=== PATIENT | male | born 1965 | race Caucasian/White ===

== ENCOUNTER 2022-11-10 14:01 | Emergency (ER) | payer MEDICAID, SELFPAY ==
[2022-11-10] VITALS (39 sets, daily range): BP systolic 110–136; BP diastolic 66–87; PULSE 104–149; RESP 18–39; TEMP 37.2–37.5; O2SAT 89–100
--- NOTE | 2022-11-10 14:00 | RT.EKG_ITS ---
APPROVED REPORT Exam: Resting ECG Reason for Exam: tachycardia Patient Location: E HR:135 bpm ECG Measurements Heart Rate 135 AXIS [place] 153 P 55 QRSd 74 QRS 76 QT 255 T 259 QTc 383 Conclusion Sinus tachycardia...rate> 99 Probable left atrial enlargement...P >50mS, <-0.10mV V1 sinus tachycardia, normal axis, normal intervals
--- NOTE | 2022-11-10 14:14 | DI.RAD_ITS ---
Exam(s) XR CHEST 1V IN DI DEPT EXAM: XR CHEST 1V IN DI DEPT CLINICAL HISTORY: tachy, fever, ca on chemo. TECHNIQUE: 2D digital imaging was performed. COMPARISON: No exams were available for comparison FINDINGS: Single AP portable view. There is a right supra clavi in Port-A-Cath. Its distal tip is in the right atrium. Heart size is upper normal. The mediastinum is not widened. Lungs are clear. No infiltrates nor obvious pleural effusions. IMPRESSION: No acute pulmonary findings on this single AP portable view of the chest. The distal tip of the Port-A-Cath is in the right atrium. DATA REPOSITORY: RADIATION DOSE DELIVERED:
--- NOTE | 2022-11-10 14:20 | W.ED.GENAD ---
Discharge Plan Discharge Details Chief Complaint: Abd Prob Primary Care Provider: Ludwig Acevedo ED Provider: Aftab Kidd Home Meds and New Rx's Prescriptions: No Action prochlorperazine maleate 10 mg tablet 10 mg PO Q6H PRN Patient Comments: TAKE ONE TABLET BY MOUTH EVERY 6 HOURS NEEDED FOR NAUSEA AND VOMITING hydrochlorothiazide [HydroDiuril] 25 mg Tablet 12.5 mg PO DAILY Ensure Plus 0.05 gram- 1.5 kcal/mL liquid 237 ml PO BID Medical Decision Making 57-year-old male history of colon cancer metastatic to liver currently undergoing chemotherapy presents after developing tachycardia and fever at the end of his chemotherapy session this afternoon. Endorses abdominal pain without nausea or diarrhea patient is afebrile here however tachycardic to the 140s does appear dry and pale, abdomen is distended with hepatomegaly and ascites, nonperitoneal. Consider chemotherapy reaction versus viral illness versus bacterial infection such as pneumonia colitis UTI versus enteritis bowel perforation and peritonitis versus spontaneous bacterial peritonitis. Will obtain basic labs, cultures, chest x-ray, CT abdomen pelvis. Fluids analgesia antiemetics close reassessment of symptoms, disposition pending results and reassessment 15: 30 patient resting comfortably no acute distress persistent tachycardia. Awaiting labs and imaging. HPI General Date/Time Provider Initiated Documentation: 11/10/22 14:08. HPI Narrative: 57-year-old male history of colorectal cancer metastatic to liver, currently undergoing chemotherapy, was at chemo finishing his session when he developed tachycardia and a fever. Also endorses abdominal discomfort. Endorses normal bowel movements, no nausea or vomiting. No chest pain or shortness of breath. No history of thromboembolic disease. Related Data Home Medications Medication Instructions Recorded Confirmed food supplemt, lactose-reduced 237 ml PO BID 11/10/22 11/10/22 0.05 gram-1.5 kcal/mL oral liquid (Ensure Plus) hydrochlorothiazide 25 mg tablet 12.5 mg PO DAILY 11/10/22 11/10/22 prochlorperazine maleate 10 mg 10 mg PO Q6H PRN 11/10/22 11/10/22 tablet Allergies Allergy/AdvReac Type Severity Reaction Status Date / Time No Known Allergies Allergy Unverified 11/10/22 14:38 General Stated Complaint: Abd Prob EDELMIRA: 3 Review of Systems Narrative: Review of Systems Constitutional: negative Eyes: negative ENT: negative Cardiovascular: Tachycardia Respiratory: negative Gastrointestinal: Abdominal pain : negative Musculoskeletal: negative Skin: negative Neurologic: negative Psych: negative [facility] Medical History (Updated 11/10/22 @ 14:38 by Rylee Raymond) Colon cancer metastasized to liver Hairy cell leukemia Hypertension Spondylosis of lumbar spine Social History Smoking risk assessment performed?: No Exam Narrative Exam Narrative: Physical Examination General: alert, awake, cooperative HEENT: normocephalic, atraumatic; PERRL, EOM intact, conjunctiva normal; no nasal discharge; slight drying of oral mucosa Neck: supple, trachea midline; full ROM Chest: normal to inspection Respiratory: normal respiratory effort, speaking in full sentences, clear to auscultation, no wheezing, rales or rhonchi Cardiac: regular rate, regular rhythm, S1S2 intact, no murmurs rubs or gallops GI: Abdominal distention, hepatomegaly, ascites, nonperitoneal Skin: Pale, dry Neuro: AAOx3, normal speech, moving all extremities Extremities: No edema Psych: Appropriate mood and affect Course Vital Signs Vital signs: Vital Signs Temperature 37.2 C 11/10/22 14:05 Pulse 142 H 11/10/22 14:05 Blood Pressure 136/82 11/10/22 14:05 Pulse Oximetry 97 11/10/22 14:05 Temperature 37.2 C 11/10/22 14:05 Temperature Source Oral 11/10/22 14:05 Pulse 142 H 11/10/22 14:05 Respiratory Effort Normal, Short of Breath 11/10/22 14:09 Blood Pressure 136/82 11/10/22 14:05 Blood Pressure Position Sitting 11/10/22 14:05 Pulse Oximetry 97 11/10/22 14:05 Oxygen Delivery Method Room Air 11/10/22 14:05 Oxygen Flow Rate 0 11/10/22 14:05 Lab/Test Results Lab/Test Results: 11/10/22 14:14 Blood Blood Culture - Pending 11/10/22 14:14 Blood Blood Culture - Pending
[2022-11-10 14:54] LABS: Abs Immature Grans 0.11 10^3/uL (0.0-0.06); Absolute Basophil Count 0.02 10^3/uL (0.0-0.2); Absolute Lymphocyte Count 0.74 10^3/uL (1.2-3.4); Basophils % 0.1; HCT 31.1 % (40.0-50.0); HGB 10.1 g/dL (13.5-17.5); Immature Grans % 0.6; Lymphocytes % 4.3; MCH 24.9 pg (27.0-33.0); MCHC 32.5 % (32.0-36.0); MCV 77 fL (80-95); MPV 8.5 fL (8.0-11.0); RBC 4.05 10^6/uL (4.36-5.78); RDW 16.4 % (11.8-14.1); RDW-SD 45.7 fL
[2022-11-10 14:55] LABS: Absolute Monocyte Count 0.69 10^3/uL (0.1-0.8); Absolute Neutrophil Count 15.74 10^3/uL (1.2-6.7)
[2022-11-10] MEDS: Normal Saline 1,000 ML 1000 ML IV (15:01)
[2022-11-10] MEDS: ACETAMINOPHEN 1,000 MG/100 ML BTL 400 MG IVPB (15:10)
[2022-11-10 15:14] LABS: INR 1.2 (0.9-1.1); PTT Activated 26.5 sec (21.5-31.9); Prothrombin Time 12.1 sec (9.3-11.0)
[2022-11-10] MEDS: Ondansetron 4 MG/2 ML VIAL IVP (15:16)
[2022-11-10] MEDS: MORPHine 4 MG/ML SYR 2 MG IVP (15:19)
[2022-11-10 15:29] LABS: ALT 113 U/L (16-63); AST 591 U/L (15-37); Albumin 2.2 g/dL (3.4-5.0); Alkaline Phosphatase 826 U/L (46-116); Anion Gap 8.9 mmol/L (3-11); BUN 22 mg/dL (7-18); Bilirubin, Total 0.9 mg/dL (0.2-1.0); CO2 29.1 mmol/L (21.0-32.0); Calcium 9.7 mg/dL (8.5-10.1); Chloride 94 mmol/L (98-107); Glucose 138 mg/dL (74-106); Lipase 17 U/L (16-77); Potassium 4.1 mmol/L (3.5-5.1); Sodium 132 mmol/L (136-145); TSH (W/Ref FT4) 3.54 uIU/mL (0.36-3.74); Total Protein 6.8 g/dL (6.4-8.2)
--- NOTE | 2022-11-10 15:30 | DI.CT_ITS ---
Exam(s) CT CHEST PE ABD PELVIS W EXAM: CT CHEST PE ABD PELVIS W CLINICAL HISTORY: active cancer, tachycardia, abdominal pain. TECHNIQUE: Imaging Protocol: Axial CT angiography was performed with multi-slice acquisition and m ulti-planar and/or 3D reconstructions. CONTRAST MATERIAL: Intravenous: Omnipaque 350 Contrast volume:100 ml Oral: None COMPARISON: CR XR CHEST 1V IN DI DEPT from 11/10/2022 FINDINGS: CHEST: Distal tip of the right PICC line is in the right atrium. PULMONARY ARTERIES: There are no obvious intra-arterial filling defects to suggest the presence of ac evans pulmonary emboli. LUNGS: There is no evidence of pulmonary infarction.There are multiple small calcified granulomas thr oughout both lung bullock. There are no obvious metastatic appearing nodules. No confluent infiltrat es and no pleural effusions. No findings in the trachea and mainstem bronchi. There are no pleural effusions. MEDIASTINUM: There is no hilar nor mediastinal adenopathy. Visualized thyroid unremarkable. CARDIAC: Heart size is normal. There is no pericardial effusion. There is no significant shift of t he interventricular septum.Caliber of the thoracic aorta is within normal limits. OSSEOUS: No significant osseous lesions.. ABDOMEN: There is a small amount of perihepatic ascites. There are metallic densities in the left upper quadr ant just above the pancreatic tail and behind the stomach, possibly surgical clips. LIVER: There are multiple individual and confluent metastatic lesions throughout the liver. Involvin g both lobes. Liver also appears somewhat cirrhotic. GALLBLADDER/BILIARY: No obvious gallbladder pathology. CBD is not dilated. PANCREAS: No evidence of pancreatic mass nor dilatation of the pancreatic duct. SPLEEN: Spleen size normal. There is some subcapsular fluid around the lateral aspect of the spleen. Splenic and portal veins are patent. ADRENALS: There are no significant adrenal masses. KIDNEYS:No cysts evident. No calculi nor hydronephrosis. No solid renal masses. ABDOMINAL AORTA: Abdominal aorta is not enlarged. LYMPH NODES: There is retroperitoneal adenopathy. Portacaval adenopathy. Also para-aortic adenopath y. Largest lymph node adjacent to the aorta is left of the aorta and measures 2.3 x 2.3 cm. There i s no adenopathy distal to the aortic bifurcation. ABDOMINAL WALL/GI: No evidence of significant anterior abdominal wall hernia. No bowel obstruction. PELVIS: LYMPH NODES: There is some ascites in the pelvis. GI: No evidence of appendicitis.No evidence of sigmoid diverticulitis. URINARY BLADDER: No calculi nor masses evident REPRODUCTIVE: Prostate slightly prominent. OSSEOUS: No significant osseous lesions. No fractures. IMPRESSION: 1. No evidence of acute pulmonary emboli nor pulmonary infarction. 2. No infiltrates nor pleural effusions. No metastatic nodules in the lung bullock but there are nume kathy bilateral calcified benign granulomas in both lung bullock. 3. There is diffuse metastatic disease involving all aspects of the liver. Liver also appears cirrho tic. 4. Moderate amount of ascites evident. Also retroperitoneal and para-aortic adenopathy evident. 5. No significant osseous lesions. No fractures. RADIATION DOSE DELIVERED: 1,292.81mGy.cm Total DLP DATA REPOSITORY: All CT scans at this facility are submitted to the National Radiology Data Registry (NRDR) Dose Index Registry (DIR) with the [employer] (A[employer]). RADIATION OPTIMIZATION: All CT scans at this facility use at least one of these dose optimization te chniques: automated exposure control; mA and/or kV adjustment per patient size (includes targeted exa ms where dose is matched to clinical indication); or iterative reconstruction.
[2022-11-10 15:35] LABS: Platelet Count 738 10^3/uL (130-400)
[2022-11-10 15:40] LABS: Magnesium 1.6 mg/dL (1.8-2.4)
[2022-11-10] MEDS: Normal Saline - Diluent 50 ML VIAL IJ (15:45)
[2022-11-10] MEDS: Omnipaque 350 MG/ML 100 ML BTL IJ (15:46)
[2022-11-10] MEDS: Normal Saline Flush 10 ML SYR IVP (15:47)
[2022-11-10 16:28] LABS: Bilirubin Negative (Negative); Blood Negative (Negative); Clarity Clear (Clear); Glucose Negative (Negative); Ketones Negative (Negative); Leukocyte Esterase Negative (Negative); Nitrite Negative (Negative); Specific Gravity 1.015 (1.005-1.025); pH 5.5 (5-8)
[2022-11-10 16:39] LABS: Bacteria Negative HPF (Negative); C & S Indicated? No; Casts Negative LPF (Negative); Crystals Negative HPF (Negative); Epithelial Cells Rare HPF (Negative); Mucus Negative (Negative); RBC 0-2 HPF (0-2); WBC 0-2 HPF (0-5)
[2022-11-10 17:09] LABS: COVID-19 PCR Negative (Negative); Influenza A PCR Negative (Negative); Influenza B PCR Negative (Negative); RSV PCR Negative (Negative)
[2022-11-10 17:16] LABS: Source Nasopharynx
--- NOTE | 2022-11-10 17:41 | DI.VRAD_ITS ---
PROCEDURE INFORMATION: Exam: CTA Chest With Contrast CTA Abdomen With Contrast Exam date and time: 11/10/2022 3:58 PM Age: 57 years old Clinical indication: Prior surgery; Surgery date: 6+ months; Surgery type: Port, spleen; Patient HX: Active cancer, tachycardia, abdominal pain, known liver and colon cancer TECHNIQUE: Imaging protocol: Computed tomographic angiography of the chest with contrast. Computed tomographic angiography of the abdomen with contrast. 3D rendering (Not supervised by radiologist): MIP and/or 3D reconstructed images were created by the technologist. Contrast material: OMNIPAQUE 350; Contrast volume: 100 ml; Contrast route: INTRAVENOUS (IV); COMPARISON: CR XR CHEST 1V IN DI DEPT 11/10/2022 3:57 PM FINDINGS: Tubes, catheters and devices: There is a right-sided Port-A-Cath catheter with its tip in the right atrium. VASCULATURE: Pulmonary arteries: There is no evidence of a pulmonary embolus. Aorta: The aorta is unremarkable. Celiac trunk and mesenteric arteries: The patient is status post splenic artery aneurysm coiling. There is no evidence of a stenosis. Renal arteries: No occlusion or significant stenosis. Thyroid: The visualized portions of the thyroid gland appear unremarkable. CHEST: Lungs: The tracheobronchial tree is patent bilaterally. There is no evidence of an infiltrate. There are multiple scattered bilateral calcified granuloma. Pleural spaces: There are no pleural effusions. Heart: The heart and pericardium are within normal limits. ABDOMEN AND PELVIS: Liver: The liver is practically completely occupied by metastatic disease. Gallbladder and bile ducts: The gallbladder is unremarkable. Pancreas: The pancreas is unremarkable. Spleen: The spleen is within normal limits. Adrenal glands: The adrenal glands are within normal limits. Kidneys and ureters: The kidneys are unremarkable. Stomach and bowel: There are feces within the colon which are suspicious for constipation. There is a mass at the junction of the sigmoid and descending colons. This is consistent with the patient's history of colonic carcinoma. The mass extends outside the confines of the colon. The extra colonic component measuring approximally 2.8 x 2.5 cm. Intraperitoneal space: There is ascites within the abdomen and pelvis. Urinary bladder: The urinary bladder is unremarkable. Reproductive: The prostate and seminal vesicles are within normal limits. Lymph nodes: There are calcified right paratracheal and precarinal lymph nodes. There are calcified prevascular lymph nodes. There are calcified subcarinal lymph nodes. There are calcified bilateral hilar lymph nodes. These findings are consistent with old granulomatous disease. There are multiple left periaortic lymph nodes. The largest of which measures 1.9 cm. There are multiple aortocaval lymph nodes. The largest of which measures up to 1.4 cm. There is portacaval adenopathy with a lymph node measuring 2.8 x 1.3 cm. Bones/joints: There are degenerative changes of the thoracic spine. There is an anterior flowing osteophyte at multiple levels. There are slight degenerative changes of the left shoulder. There are degenerative changes of the lumbar spine. Soft tissues: Unremarkable. IMPRESSION: 1. Colonic carcinoma as above. The liver is practically completely occupied by metastatic disease. Retroperitoneal adenopathy as above. Small amount of ascites within the abdomen and pelvis. 2. No evidence of a pulmonary embolus. 3. The aorta is unremarkable. 4. Findings consistent with old granulomatous disease. 5. Osseous findings as above. Dictated and Authenticated by: Junior Melara MD. Ordering:BREE Grullon MD
[2022-11-10] MEDS: Heparin 500 UNITS/5 ML SYRINGE IVP (18:57)
== END 2022-11-10 19:01 | disposition home or self-care (01) ==
PROVIDERS: Emergency Medicine; Emergency Provider Emergency Medicine; PCP Internal Medicine Hematology & Oncology
DX: R50.9 Fever, unspecified (principal); R00.0 Tachycardia, unspecified; D72.829 Elevated white blood cell count, unspecified; C18.9 Malignant neoplasm of colon, unspecified; C78.7 Secondary malignant neoplasm of liver and intrahepatic bile duct; R18.8 Other ascites; R16.0 Hepatomegaly, not elsewhere classified
CPT/HCPCS: 71275; 74177; 80053; 83690; 87040; 87637; 93005; 96361; 96374; 96375; 99285; 71045; 81003; 81015; 83735; 84443; 85025; 85610; 85730; 93010; J0131; J2270; J2405; J3490

== ENCOUNTER 2022-11-22 02:33 | Outpatient (RCR) | payer MEDICAID, SELFPAY ==
[2022-11-22] MEDS: Normal Saline Flush 10 ML SYR IVP (09:09)
[2022-11-22 09:23] LABS: Abs Immature Grans 0.03 10^3/uL (0.0-0.06); Absolute Basophil Count 0.05 10^3/uL (0.0-0.2); Absolute Eosinophil Count 0.06 10^3/uL (0.0-0.7); Absolute Lymphocyte Count 1.73 10^3/uL (1.2-3.4); Absolute Monocyte Count 1.57 10^3/uL (0.1-0.8); Basophils % 0.5; Eosinophils % 0.6; HCT 29.5 % (40.0-50.0); HGB 9.2 g/dL (13.5-17.5); Immature Grans % 0.3; Lymphocytes % 16.3; MCH 25.1 pg (27.0-33.0); MCHC 31.2 % (32.0-36.0); MCV 80 fL (80-95); MPV 8.7 fL (8.0-11.0); Monocytes % 14.8; Neutrophils % 67.5; RBC 3.67 10^6/uL (4.36-5.78); RDW 19.3 % (11.8-14.1); RDW-SD 54.7 fL; WBC 10.64 10^3/uL (4.4-10.8)
[2022-11-22 09:34] LABS: Diff Comment Diff Reviewed; RBC Morphology Normal
[2022-11-22 09:37] LABS: Platelet Count 872 10^3/uL (130-400)
[2022-11-22 09:47] LABS: ALT 37 U/L (16-63); AST 98 U/L (15-37); Alkaline Phosphatase 804 U/L (46-116); BUN 8 mg/dL (7-18); Bilirubin, Total 0.5 mg/dL (0.2-1.0); CREATININE 0.8 mg/dL (0.70-1.30); Calcium 9.3 mg/dL (8.5-10.1); Chloride 98 mmol/L (98-107); Estimated GFR 101.95 (mL/min/1.73m2); Glucose 151 mg/dL (74-106); Potassium 3.7 mmol/L (3.5-5.1); Sodium 136 mmol/L (136-145); Total Protein 6.4 g/dL (6.4-8.2)
[2022-11-23 10:42] LABS: CEA 2289.7 ng/mL (See Note)
== END 2022-12-06 23:59 | disposition home or self-care (01) ==
LOC: INF 02:33
PROVIDERS: PCP Internal Medicine Hematology & Oncology; Visit Provider Internal Medicine Hematology & Oncology
DX: Z45.2 Encounter for adjustment and management of vascular access device (principal); C18.9 Malignant neoplasm of colon, unspecified; C78.7 Secondary malignant neoplasm of liver and intrahepatic bile duct
CPT/HCPCS: 36591; 80053; 82378; 85025

== ENCOUNTER 2023-01-05 00:40 | Outpatient (RCR) | payer MEDICAID, SELFPAY ==
[2022-12-08] MEDS: Normal Saline Flush 10 ML SYR IVP (08:06)
[2022-12-08 08:12] LABS: Abs Immature Grans 0.03 10^3/uL (0.0-0.06); Absolute Basophil Count 0.09 10^3/uL (0.0-0.2); Absolute Eosinophil Count 0.04 10^3/uL (0.0-0.7); Absolute Lymphocyte Count 1.56 10^3/uL (1.2-3.4); Absolute Monocyte Count 1.73 10^3/uL (0.1-0.8); Absolute Neutrophil Count 6.64 10^3/uL (1.2-6.7); Basophils % 0.9; Eosinophils % 0.4; HGB 10.1 g/dL (13.5-17.5); Immature Grans % 0.3; Lymphocytes % 15.5; MCH 25.9 pg (27.0-33.0); MCHC 31.6 % (32.0-36.0); MCV 82 fL (80-95); MPV 8.4 fL (8.0-11.0); Monocytes % 17.1; Neutrophils % 65.8; RDW 20.5 % (11.8-14.1); RDW-SD 59.4 fL; WBC 10.09 10^3/uL (4.4-10.8)
[2022-12-08 08:39] LABS: Anisocytosis 2+; Diff Comment Agrees w/ Instrument; Platelet Count 642 10^3/uL (130-400)
[2022-12-08 08:55] LABS: ALT 23 U/L (16-63); AST 73 U/L (15-37); Albumin 2.5 g/dL (3.4-5.0); Alkaline Phosphatase 573 U/L (46-116); Anion Gap 4.9 mmol/L (3-11); BUN 10 mg/dL (7-18); Bilirubin, Total 0.5 mg/dL (0.2-1.0); CO2 31.1 mmol/L (21.0-32.0); CREATININE 0.8 mg/dL (0.70-1.30); Calcium 9.9 mg/dL (8.5-10.1); Chloride 95 mmol/L (98-107); Estimated GFR 101.95 (mL/min/1.73m2); Glucose 159 mg/dL (74-106); Potassium 4.1 mmol/L (3.5-5.1); Sodium 131 mmol/L (136-145); Total Protein 7.4 g/dL (6.4-8.2)
[2022-12-08 20:54] LABS: CEA 762.2 ng/mL (See Note)
[2022-12-10 09:34] VITALS: BP 110/67; PULSE 100; RESP 17; TEMP 36.6; O2SAT 99
[2022-12-10] MEDS: Normal Saline Flush 10 ML SYR IVP (09:41)
[2022-12-10] MEDS: Heparin 500 UNITS/5 ML SYRINGE IV (09:42)
[2022-12-22] MEDS: Normal Saline Flush 10 ML SYR IVP (08:44)
[2022-12-22 08:59] LABS: Abs Immature Grans 0.01 10^3/uL (0.0-0.06); Absolute Eosinophil Count 0.09 10^3/uL (0.0-0.7); Absolute Lymphocyte Count 1.96 10^3/uL (1.2-3.4); Absolute Monocyte Count 1.27 10^3/uL (0.1-0.8); Basophils % 1.6; Eosinophils % 1.4; HCT 31.9 % (40.0-50.0); HGB 9.8 g/dL (13.5-17.5); Immature Grans % 0.2; Lymphocytes % 30.5; MCH 25.7 pg (27.0-33.0); MCHC 30.7 % (32.0-36.0); MCV 84 fL (80-95); MPV 8.6 fL (8.0-11.0); Monocytes % 19.8; Neutrophils % 46.5; Platelet Count 585 10^3/uL (130-400); RBC 3.82 10^6/uL (4.36-5.78); RDW 19.1 % (11.8-14.1); RDW-SD 57.8 fL; WBC 6.43 10^3/uL (4.4-10.8)
[2022-12-22 09:16] LABS: ALT 17 U/L (16-63); AST 49 U/L (15-37); Albumin 2.4 g/dL (3.4-5.0); Alkaline Phosphatase 519 U/L (46-116); Anion Gap 7.9 mmol/L (3-11); BUN 13 mg/dL (7-18); Bilirubin, Total 0.3 mg/dL (0.2-1.0); CO2 31.1 mmol/L (21.0-32.0); CREATININE 0.7 mg/dL (0.70-1.30); Calcium 9.8 mg/dL (8.5-10.1); Chloride 96 mmol/L (98-107); Estimated GFR 106.14 (mL/min/1.73m2); Glucose 143 mg/dL (74-106); Sodium 135 mmol/L (136-145); Total Protein 7.3 g/dL (6.4-8.2)
[2022-12-22 23:15] LABS: CEA 357.8 ng/mL (See Note)
[2022-12-24] MEDS: Normal Saline Flush 10 ML SYR IVP (10:36)
[2022-12-24] MEDS: Heparin 500 UNITS/5 ML SYRINGE IV (10:36)
[2023-01-05] MEDS: Normal Saline Flush 10 ML SYR IVP (09:19)
[2023-01-05 09:25] LABS: Abs Immature Grans 0.01 10^3/uL (0.0-0.06); Absolute Basophil Count 0.08 10^3/uL (0.0-0.2); Absolute Eosinophil Count 0.07 10^3/uL (0.0-0.7); Absolute Lymphocyte Count 1.89 10^3/uL (1.2-3.4); Absolute Monocyte Count 1.11 10^3/uL (0.1-0.8); Absolute Neutrophil Count 2.46 10^3/uL (1.2-6.7); Basophils % 1.4; Eosinophils % 1.2; HCT 33.6 % (40.0-50.0); HGB 10.5 g/dL (13.5-17.5); Immature Grans % 0.2; Lymphocytes % 33.6; MCH 26.9 pg (27.0-33.0); MCHC 31.3 % (32.0-36.0); MCV 86 fL (80-95); MPV 8.2 fL (8.0-11.0); Monocytes % 19.8; Neutrophils % 43.8; Platelet Count 411 10^3/uL (130-400); RDW 20.2 % (11.8-14.1); RDW-SD 63.8 fL; WBC 5.62 10^3/uL (4.4-10.8)
[2023-01-05 09:44] LABS: ALT 17 U/L (16-63); AST 52 U/L (15-37); Albumin 2.7 g/dL (3.4-5.0); Alkaline Phosphatase 376 U/L (46-116); Anion Gap 5.5 mmol/L (3-11); BUN 11 mg/dL (7-18); Bilirubin, Total 0.4 mg/dL (0.2-1.0); CO2 32.5 mmol/L (21.0-32.0); CREATININE 0.7 mg/dL (0.70-1.30); Calcium 10.1 mg/dL (8.5-10.1); Chloride 99 mmol/L (98-107); Estimated GFR 106.14 (mL/min/1.73m2); Glucose 127 mg/dL (74-106); Sodium 137 mmol/L (136-145); Total Protein 7.4 g/dL (6.4-8.2)
[2023-01-05 10:20] LABS: Anisocytosis 2+; Diff Comment RBC Morph Reviewed
[2023-01-05 10:22] LABS: Basophilic Stippling 1+
== END 2023-01-05 23:59 | disposition home or self-care (01) ==
LOC: INF 00:40
PROVIDERS: PCP Internal Medicine Hematology & Oncology; Visit Provider Internal Medicine Hematology & Oncology
DX: C18.9 Malignant neoplasm of colon, unspecified (principal); C78.7 Secondary malignant neoplasm of liver and intrahepatic bile duct; Z45.2 Encounter for adjustment and management of vascular access device
CPT/HCPCS: 36591; 80053; 96523; 82378; 85025

== ENCOUNTER 2023-02-04 00:01 | Outpatient (RCR) | payer MEDICAID, SELFPAY ==
[2023-01-06 00:18] VITALS: BP 110/67; PULSE 100; RESP 17; TEMP 36.6
[2023-01-07] MEDS: Normal Saline Flush 10 ML SYR IVP (11:38)
[2023-01-07] MEDS: Heparin 500 UNITS/5 ML SYRINGE IV (11:38)
[2023-01-19] MEDS: Normal Saline Flush 10 ML SYR IVP (08:55)
[2023-01-19 08:58] LABS: Abs Immature Grans 0.02 10^3/uL (0.0-0.06); Absolute Basophil Count 0.07 10^3/uL (0.0-0.2); Absolute Eosinophil Count 0.12 10^3/uL (0.0-0.7); Absolute Lymphocyte Count 1.62 10^3/uL (1.2-3.4); Absolute Monocyte Count 0.86 10^3/uL (0.1-0.8); Absolute Neutrophil Count 2.49 10^3/uL (1.2-6.7); Basophils % 1.4; Eosinophils % 2.3; HCT 33.1 % (40.0-50.0); HGB 10.6 g/dL (13.5-17.5); Immature Grans % 0.4; Lymphocytes % 31.3; MCH 27.8 pg (27.0-33.0); MCV 87 fL (80-95); MPV 8.5 fL (8.0-11.0); Monocytes % 16.6; Platelet Count 353 10^3/uL (130-400); RBC 3.81 10^6/uL (4.36-5.78); RDW 18.6 % (11.8-14.1); RDW-SD 59.4 fL; WBC 5.18 10^3/uL (4.4-10.8)
[2023-01-19 09:13] LABS: ALT 15 U/L (16-63); AST 45 U/L (15-37); Albumin 2.6 g/dL (3.4-5.0); Alkaline Phosphatase 349 U/L (46-116); Anion Gap 7.8 mmol/L (3-11); BUN 9 mg/dL (7-18); Bilirubin, Total 0.4 mg/dL (0.2-1.0); CO2 31.2 mmol/L (21.0-32.0); CREATININE 0.8 mg/dL (0.70-1.30); Calcium 9.7 mg/dL (8.5-10.1); Chloride 99 mmol/L (98-107); Estimated GFR 101.95 (mL/min/1.73m2); Glucose 138 mg/dL (74-106); Potassium 3.7 mmol/L (3.5-5.1); Sodium 138 mmol/L (136-145); Total Protein 7.1 g/dL (6.4-8.2)
[2023-01-20 08:26] LABS: CEA 124.9 ng/mL (See Note)
[2023-01-21] MEDS: Heparin 500 UNITS/5 ML SYRINGE IV (11:35)
[2023-01-21] MEDS: Normal Saline Flush 10 ML SYR IVP (11:35)
[2023-02-02] MEDS: Normal Saline Flush 10 ML SYR IVP (09:00)
[2023-02-02 09:22] LABS: Abs Immature Grans 0.01 10^3/uL (0.0-0.06); Absolute Basophil Count 0.06 10^3/uL (0.0-0.2); Absolute Eosinophil Count 0.08 10^3/uL (0.0-0.7); Absolute Lymphocyte Count 1.57 10^3/uL (1.2-3.4); Absolute Monocyte Count 0.97 10^3/uL (0.1-0.8); Absolute Neutrophil Count 1.84 10^3/uL (1.2-6.7); Basophils % 1.3; Eosinophils % 1.8; HCT 33.6 % (40.0-50.0); HGB 10.9 g/dL (13.5-17.5); Immature Grans % 0.2; Lymphocytes % 34.7; MCH 28.8 pg (27.0-33.0); MCHC 32.4 % (32.0-36.0); MCV 89 fL (80-95); MPV 9.1 fL (8.0-11.0); Monocytes % 21.4; Neutrophils % 40.6; Platelet Count 265 10^3/uL (130-400); RBC 3.79 10^6/uL (4.36-5.78); RDW 17.8 % (11.8-14.1); RDW-SD 57.8 fL; WBC 4.53 10^3/uL (4.4-10.8)
[2023-02-02 09:36] LABS: ALT 14 U/L (16-63); AST 53 U/L (15-37); Albumin 2.8 g/dL (3.4-5.0); Alkaline Phosphatase 301 U/L (46-116); Anion Gap 8.1 mmol/L (3-11); BUN 10 mg/dL (7-18); Bilirubin, Total 0.3 mg/dL (0.2-1.0); CO2 30.9 mmol/L (21.0-32.0); CREATININE 0.7 mg/dL (0.70-1.30); Calcium 10.2 mg/dL (8.5-10.1); Chloride 100 mmol/L (98-107); Estimated GFR 106.14 (mL/min/1.73m2); Glucose 148 mg/dL (74-106); Sodium 139 mmol/L (136-145); Total Protein 7.3 g/dL (6.4-8.2)
[2023-02-02 12:11] VITALS: BP 110/67; PULSE 100; RESP 17; TEMP 36.6
[2023-02-02 19:54] LABS: CEA 72.5 ng/mL (See Note)
[2023-02-04 11:43] VITALS: BP 106/70; PULSE 84; RESP 16; TEMP 37.2; O2SAT 98
[2023-02-04] MEDS: Heparin 500 UNITS/5 ML SYRINGE IV (11:58)
[2023-02-04] MEDS: Normal Saline Flush 10 ML SYR IVP (11:58)
== END 2023-02-05 23:59 | disposition home or self-care (01) ==
LOC: INF 00:01
PROVIDERS: PCP Internal Medicine Hematology & Oncology; Visit Provider Internal Medicine Hematology & Oncology
DX: Z45.2 Encounter for adjustment and management of vascular access device (principal); C18.9 Malignant neoplasm of colon, unspecified; C78.7 Secondary malignant neoplasm of liver and intrahepatic bile duct
CPT/HCPCS: 36591; 80053; 96523; 82378; 85025

== ENCOUNTER 2023-03-04 00:44 | Outpatient (RCR) | payer MEDICAID, SELFPAY ==
[2023-02-06 00:15] VITALS: BP 106/70; PULSE 84; RESP 16; TEMP 37.2
[2023-02-16] MEDS: Normal Saline Flush 10 ML SYR IVP (10:18)
[2023-02-16 10:20] LABS: Abs Immature Grans 0.01 10^3/uL (0.0-0.06); Absolute Basophil Count 0.05 10^3/uL (0.0-0.2); Absolute Eosinophil Count 0.05 10^3/uL (0.0-0.7); Absolute Lymphocyte Count 1.38 10^3/uL (1.2-3.4); Absolute Monocyte Count 0.91 10^3/uL (0.1-0.8); Absolute Neutrophil Count 1.46 10^3/uL (1.2-6.7); Basophils % 1.3; Eosinophils % 1.3; HCT 33.5 % (40.0-50.0); HGB 11.1 g/dL (13.5-17.5); Immature Grans % 0.3; Lymphocytes % 35.8; MCH 29.8 pg (27.0-33.0); MCHC 33.1 % (32.0-36.0); MCV 90 fL (80-95); MPV 8.6 fL (8.0-11.0); Monocytes % 23.6; Neutrophils % 37.7; Platelet Count 315 10^3/uL (130-400); RBC 3.73 10^6/uL (4.36-5.78); RDW-SD 52.9 fL; WBC 3.86 10^3/uL (4.4-10.8)
[2023-02-16 10:40] LABS: ALT 11 U/L (16-63); AST 44 U/L (15-37); Albumin 2.6 g/dL (3.4-5.0); Alkaline Phosphatase 295 U/L (46-116); Anion Gap 7.8 mmol/L (3-11); BUN 10 mg/dL (7-18); Bilirubin, Total 0.4 mg/dL (0.2-1.0); CO2 30.2 mmol/L (21.0-32.0); CREATININE 0.6 mg/dL (0.70-1.30); Calcium 10.1 mg/dL (8.5-10.1); Chloride 98 mmol/L (98-107); Glucose 153 mg/dL (74-106); Sodium 136 mmol/L (136-145); Total Protein 7.5 g/dL (6.4-8.2)
[2023-02-16 20:00] LABS: CEA 57.9 ng/mL (See Note)
[2023-02-18] MEDS: Normal Saline Flush 10 ML SYR IVP (12:16)
[2023-02-18] MEDS: Heparin 500 UNITS/5 ML SYRINGE IV (12:16)
[2023-03-02] MEDS: Normal Saline Flush 10 ML SYR IVP (07:39)
[2023-03-02 08:21] LABS: Abs Immature Grans 0.01 10^3/uL (0.0-0.06); Absolute Basophil Count 0.03 10^3/uL (0.0-0.2); Absolute Lymphocyte Count 1.49 10^3/uL (1.2-3.4); Absolute Monocyte Count 1.14 10^3/uL (0.1-0.8); Absolute Neutrophil Count 2.62 10^3/uL (1.2-6.7); Basophils % 0.6; Eosinophils % 1.9; HCT 34.2 % (40.0-50.0); HGB 11.1 g/dL (13.5-17.5); Immature Grans % 0.2; Lymphocytes % 27.6; MCHC 32.5 % (32.0-36.0); MCV 92 fL (80-95); MPV 9.4 fL (8.0-11.0); Monocytes % 21.2; Neutrophils % 48.5; Platelet Count 165 10^3/uL (130-400); RDW 16.3 % (11.8-14.1); RDW-SD 54.2 fL; WBC 5.39 10^3/uL (4.4-10.8)
[2023-03-02 08:53] LABS: ALT 19 U/L (16-63); AST 60 U/L (15-37); Albumin 2.9 g/dL (3.4-5.0); Alkaline Phosphatase 254 U/L (46-116); Anion Gap 9.5 mmol/L (3-11); BUN 7 mg/dL (7-18); Bilirubin, Total 0.6 mg/dL (0.2-1.0); CO2 27.5 mmol/L (21.0-32.0); CREATININE 0.6 mg/dL (0.70-1.30); Calcium 10.1 mg/dL (8.5-10.1); Chloride 99 mmol/L (98-107); Glucose 115 mg/dL (74-106); Potassium 3.7 mmol/L (3.5-5.1); Sodium 136 mmol/L (136-145); Total Protein 7.5 g/dL (6.4-8.2)
[2023-03-02 20:17] LABS: CEA 65.9 ng/mL (See Note)
[2023-03-04 10:14] VITALS: BP 112/74; PULSE 97; RESP 16; TEMP 37.4; O2SAT 98
== END 2023-03-08 23:59 | disposition home or self-care (01) ==
LOC: INF 00:44
PROVIDERS: PCP Internal Medicine Hematology & Oncology; Visit Provider Internal Medicine Hematology & Oncology
DX: C18.9 Malignant neoplasm of colon, unspecified (principal); C78.7 Secondary malignant neoplasm of liver and intrahepatic bile duct; Z45.2 Encounter for adjustment and management of vascular access device
CPT/HCPCS: 36591; 80053; 96523; 82378; 85025

== ENCOUNTER 2023-04-06 02:50 | Outpatient (RCR) | payer MEDICAID, SELFPAY ==
[2023-03-09 00:21] VITALS: BP 112/74; PULSE 97; RESP 16; TEMP 37.4
[2023-03-16 08:14] LABS: Basophils % 1.5; Eosinophils % 1.7; HCT 34.3 % (40.0-50.0); HGB 11.2 g/dL (13.5-17.5); Lymphocytes % 37.2; MCH 30.5 pg (27.0-33.0); MCHC 32.7 % (32.0-36.0); MCV 94 fL (80-95); MPV 9.3 fL (8.0-11.0); Neutrophils % 39.6; Platelet Count 202 10^3/uL (130-400); RBC 3.67 10^6/uL (4.36-5.78); RDW 15.2 % (11.8-14.1); RDW-SD 52.3 fL; WBC 4.11 10^3/uL (4.4-10.8)
[2023-03-16 08:15] LABS: Absolute Basophil Count 0.06 10^3/uL (0.0-0.2); Absolute Eosinophil Count 0.07 10^3/uL (0.0-0.7); Absolute Lymphocyte Count 1.53 10^3/uL (1.2-3.4); Absolute Monocyte Count 0.82 10^3/uL (0.1-0.8); Absolute Neutrophil Count 1.63 10^3/uL (1.2-6.7)
[2023-03-16 08:30] LABS: ALT 26 U/L (16-63); AST 45 U/L (15-37); Albumin 2.7 g/dL (3.4-5.0); Alkaline Phosphatase 244 U/L (46-116); Anion Gap 5.6 mmol/L (3-11); BUN 7 mg/dL (7-18); Bilirubin, Total 0.5 mg/dL (0.2-1.0); CO2 31.4 mmol/L (21.0-32.0); CREATININE 0.7 mg/dL (0.70-1.30); Calcium 9.6 mg/dL (8.5-10.1); Chloride 100 mmol/L (98-107); Estimated GFR 106.14 (mL/min/1.73m2); Glucose 134 mg/dL (74-106); Potassium 3.6 mmol/L (3.5-5.1); Sodium 137 mmol/L (136-145); Total Protein 7.4 g/dL (6.4-8.2)
[2023-03-16] MEDS: Normal Saline Flush 10 ML SYR IVP (08:59)
[2023-03-16 18:06] LABS: CEA 50.9 ng/mL (See Note)
[2023-03-18] MEDS: Heparin 500 UNITS/5 ML SYRINGE IV (10:00)
[2023-03-18] MEDS: Normal Saline Flush 10 ML SYR IVP (10:00)
[2023-03-18 10:01] VITALS: BP 113/71; PULSE 76; RESP 16; TEMP 36.3; O2SAT 96
[2023-03-30 08:49] LABS: Absolute Basophil Count 0.06 10^3/uL (0.0-0.2); Absolute Eosinophil Count 0.08 10^3/uL (0.0-0.7); Absolute Lymphocyte Count 1.48 10^3/uL (1.2-3.4); Absolute Monocyte Count 0.77 10^3/uL (0.1-0.8); Basophils % 1.8; Eosinophils % 2.4; HCT 33.5 % (40.0-50.0); HGB 11.2 g/dL (13.5-17.5); Lymphocytes % 43.7; MCH 31.3 pg (27.0-33.0); MCHC 33.4 % (32.0-36.0); MCV 94 fL (80-95); MPV 9.6 fL (8.0-11.0); Monocytes % 22.7; Neutrophils % 29.4; Platelet Count 146 10^3/uL (130-400); RBC 3.58 10^6/uL (4.36-5.78); RDW 14.6 % (11.8-14.1); RDW-SD 49.9 fL; WBC 3.39 10^3/uL (4.4-10.8)
[2023-03-30] MEDS: Normal Saline Flush 10 ML SYR IVP (08:57)
[2023-03-30 09:02] LABS: ALT 36 U/L (16-63); AST 52 U/L (15-37); Alkaline Phosphatase 240 U/L (46-116); Anion Gap 8.2 mmol/L (3-11); BUN 8 mg/dL (7-18); Bilirubin, Total 0.5 mg/dL (0.2-1.0); CO2 28.8 mmol/L (21.0-32.0); CREATININE 0.7 mg/dL (0.70-1.30); Calcium 10.1 mg/dL (8.5-10.1); Chloride 98 mmol/L (98-107); Estimated GFR 106.14 (mL/min/1.73m2); Glucose 120 mg/dL (74-106); Potassium 3.7 mmol/L (3.5-5.1); Sodium 135 mmol/L (136-145); Total Protein 7.7 g/dL (6.4-8.2)
[2023-03-30 19:23] LABS: CEA 50.3 ng/mL (See Note)
[2023-04-06] MEDS: Normal Saline Flush 10 ML SYR IVP (11:37)
[2023-04-06 11:49] LABS: Abs Immature Grans 0.02 10^3/uL (0.0-0.06); HCT 32.7 % (40.0-50.0); MCH 30.6 pg (27.0-33.0); MCHC 33.6 % (32.0-36.0); MCV 91 fL (80-95); MPV 10.5 fL (8.0-11.0); Platelet Count 157 10^3/uL (130-400); RDW 13.5 % (11.8-14.1); RDW-SD 45.5 fL; WBC 6.76 10^3/uL (4.4-10.8)
[2023-04-06 11:58] LABS: Diff Comment Manual Differential; RBC Morphology Normal
[2023-04-06 12:04] LABS: ALT 40 U/L (16-63); AST 98 U/L (15-37); Albumin 2.5 g/dL (3.4-5.0); Alkaline Phosphatase 277 U/L (46-116); Anion Gap 11.1 mmol/L (3-11); BUN 18 mg/dL (7-18); Bilirubin, Total 1.4 mg/dL (0.2-1.0); CO2 24.9 mmol/L (21.0-32.0); CREATININE 0.9 mg/dL (0.70-1.30); Calcium 10.1 mg/dL (8.5-10.1); Chloride 91 mmol/L (98-107); Estimated GFR 98.38 (mL/min/1.73m2); Glucose 220 mg/dL (74-106); Potassium 3.7 mmol/L (3.5-5.1); Sodium 127 mmol/L (136-145)
[2023-04-06 12:09] LABS: Absolute Lymphocyte Count 1.15 10^3/uL (1.2-3.4); Absolute Monocyte Count 1.42 10^3/uL (0.1-0.8); Absolute Neutrophil Count 4.19 10^3/uL (1.2-6.7)
[2023-04-09 11:11] LABS: CEA 226.3 ng/mL (See Note)
== END 2023-04-07 23:59 | disposition home or self-care (01) ==
LOC: INF 02:50
PROVIDERS: PCP Internal Medicine Hematology & Oncology; Visit Provider Internal Medicine Hematology & Oncology
DX: C18.9 Malignant neoplasm of colon, unspecified (principal); C78.7 Secondary malignant neoplasm of liver and intrahepatic bile duct; Z45.2 Encounter for adjustment and management of vascular access device
CPT/HCPCS: 36591; 80053; 96523; 82378; 85025

== ENCOUNTER 2023-04-08 13:41 | Outpatient (RCR) | payer MEDICAID, SELFPAY ==
[2023-04-08 14:20] VITALS: BP 122/78; PULSE 104; RESP 16; TEMP 36.9; O2SAT 99
== END 2023-05-08 23:59 | disposition home or self-care (01) ==
LOC: INF 13:41
PROVIDERS: PCP Internal Medicine Hematology & Oncology; Visit Provider Internal Medicine Hematology & Oncology
DX: Z45.2 Encounter for adjustment and management of vascular access device (principal)
CPT/HCPCS: 96523

== ENCOUNTER 2023-04-27 01:43 | Outpatient (RCR) | payer MEDICAID, SELFPAY ==
[2023-04-08 00:17] VITALS: BP 113/71; PULSE 76; RESP 16; TEMP 36.3
[2023-04-20 09:47] LABS: Absolute Basophil Count 0.03 10^3/uL (0.0-0.2); Absolute Eosinophil Count 0.07 10^3/uL (0.0-0.7); Absolute Lymphocyte Count 1.11 10^3/uL (1.2-3.4); Absolute Monocyte Count 0.59 10^3/uL (0.1-0.8); Absolute Neutrophil Count 0.81 10^3/uL (1.2-6.7); Basophils % 1.1; Eosinophils % 2.7; HCT 32.8 % (40.0-50.0); HGB 10.6 g/dL (13.5-17.5); Lymphocytes % 42.5; MCH 30.3 pg (27.0-33.0); MCHC 32.3 % (32.0-36.0); MCV 94 fL (80-95); MPV 9.3 fL (8.0-11.0); Monocytes % 22.6; Neutrophils % 31.1; Platelet Count 168 10^3/uL (130-400); RDW 14.7 % (11.8-14.1); RDW-SD 49.7 fL; WBC 2.61 10^3/uL (4.4-10.8)
[2023-04-20 09:55] LABS: ALT 39 U/L (16-63); AST 56 U/L (15-37); Albumin 2.5 g/dL (3.4-5.0); Alkaline Phosphatase 387 U/L (46-116); Anion Gap 4.3 mmol/L (3-11); BUN 7 mg/dL (7-18); Bilirubin, Total 0.4 mg/dL (0.2-1.0); CO2 30.7 mmol/L (21.0-32.0); CREATININE 0.6 mg/dL (0.70-1.30); Calcium 10.3 mg/dL (8.5-10.1); Chloride 100 mmol/L (98-107); Glucose 159 mg/dL (74-106); Potassium 3.9 mmol/L (3.5-5.1); Sodium 135 mmol/L (136-145); Total Protein 7.4 g/dL (6.4-8.2)
[2023-04-20 10:17] LABS: Diff Comment Diff Reviewed; RBC Morphology Normal
[2023-04-20] MEDS: Normal Saline Flush 10 ML SYR IVP (10:43)
[2023-04-20 19:39] LABS: CEA 72.1 ng/mL (See Note)
[2023-04-27] MEDS: Normal Saline Flush 10 ML SYR IVP (11:34)
[2023-04-27 11:39] LABS: Absolute Basophil Count 0.02 10^3/uL (0.0-0.2); Absolute Eosinophil Count 0.02 10^3/uL (0.0-0.7); Absolute Monocyte Count 1.27 10^3/uL (0.1-0.8); Absolute Neutrophil Count 0.59 10^3/uL (1.2-6.7); Basophils % 0.6; Eosinophils % 0.6; HCT 34.2 % (40.0-50.0); HGB 11.1 g/dL (13.5-17.5); Lymphocytes % 40.6; MCH 29.9 pg (27.0-33.0); MCHC 32.5 % (32.0-36.0); MCV 92 fL (80-95); MPV 9.2 fL (8.0-11.0); Monocytes % 39.7; Neutrophils % 18.5; Platelet Count 166 10^3/uL (130-400); RBC 3.71 10^6/uL (4.36-5.78); RDW 14.8 % (11.8-14.1); RDW-SD 50.1 fL
[2023-04-27 11:54] LABS: Diff Comment Agrees w/ Instrument; RBC Morphology Normal
[2023-04-27 11:59] LABS: ALT 46 U/L (16-63); AST 79 U/L (15-37); Albumin 2.6 g/dL (3.4-5.0); Alkaline Phosphatase 470 U/L (46-116); Anion Gap 5.1 mmol/L (3-11); BUN 10 mg/dL (7-18); Bilirubin, Total 0.6 mg/dL (0.2-1.0); CO2 28.9 mmol/L (21.0-32.0); CREATININE 0.8 mg/dL (0.70-1.30); Calcium 10.2 mg/dL (8.5-10.1); Chloride 99 mmol/L (98-107); Estimated GFR 101.95 (mL/min/1.73m2); Glucose 161 mg/dL (74-106); Potassium 3.9 mmol/L (3.5-5.1); Sodium 133 mmol/L (136-145); Total Protein 7.7 g/dL (6.4-8.2)
[2023-04-30 10:52] LABS: CEA 156.1 ng/mL (See Note)
== END 2023-05-08 23:59 | disposition home or self-care (01) ==
LOC: INF 01:43
PROVIDERS: PCP Internal Medicine Hematology & Oncology; Visit Provider Internal Medicine Hematology & Oncology
DX: C18.9 Malignant neoplasm of colon, unspecified (principal); C78.7 Secondary malignant neoplasm of liver and intrahepatic bile duct; Z45.2 Encounter for adjustment and management of vascular access device
CPT/HCPCS: 36591; 80053; 82378; 85025

== ENCOUNTER 2023-05-27 01:45 | Outpatient (RCR) | payer MEDICAID, SELFPAY ==
[2023-05-09 00:21] VITALS: BP 113/71; PULSE 76; RESP 16; TEMP 36.3
[2023-05-11] MEDS: Normal Saline Flush 10 ML SYR IVP (08:37)
[2023-05-11 09:03] LABS: Abs Immature Grans 0.03 10^3/uL (0.0-0.06); Absolute Basophil Count 0.05 10^3/uL (0.0-0.2); Absolute Eosinophil Count 0.09 10^3/uL (0.0-0.7); Absolute Lymphocyte Count 1.45 10^3/uL (1.2-3.4); Absolute Monocyte Count 1.12 10^3/uL (0.1-0.8); Absolute Neutrophil Count 6.44 10^3/uL (1.2-6.7); Basophils % 0.5; HCT 33.4 % (40.0-50.0); HGB 10.8 g/dL (13.5-17.5); Immature Grans % 0.3; Lymphocytes % 15.8; MCH 29.7 pg (27.0-33.0); MCHC 32.3 % (32.0-36.0); MCV 92 fL (80-95); MPV 10.3 fL (8.0-11.0); Monocytes % 12.2; Neutrophils % 70.2; Platelet Count 227 10^3/uL (130-400); RBC 3.64 10^6/uL (4.36-5.78); RDW 14.3 % (11.8-14.1); RDW-SD 48.5 fL; WBC 9.18 10^3/uL (4.4-10.8)
[2023-05-11 09:18] LABS: ALT 66 U/L (16-63); AST 119 U/L (15-37); Albumin 2.6 g/dL (3.4-5.0); Alkaline Phosphatase 741 U/L (46-116); Anion Gap 9.1 mmol/L (3-11); BUN 14 mg/dL (7-18); Bilirubin, Total 1.1 mg/dL (0.2-1.0); CO2 28.9 mmol/L (21.0-32.0); CREATININE 0.7 mg/dL (0.70-1.30); Calcium 11.4 mg/dL (8.5-10.1); Chloride 98 mmol/L (98-107); Estimated GFR 106.14 (mL/min/1.73m2); Glucose 142 mg/dL (74-106); Potassium 3.8 mmol/L (3.5-5.1); Sodium 136 mmol/L (136-145); Total Protein 7.9 g/dL (6.4-8.2)
[2023-05-11 19:22] LABS: CEA 525.9 ng/mL (See Note)
[2023-05-13] MEDS: Heparin 500 UNITS/5 ML SYRINGE IV (12:15)
[2023-05-13] MEDS: Normal Saline Flush 10 ML SYR IVP (12:16)
[2023-05-25] MEDS: Normal Saline Flush 10 ML SYR IVP (10:07)
[2023-05-25 10:29] LABS: Abs Immature Grans 0.03 10^3/uL (0.0-0.06); Absolute Eosinophil Count 0.08 10^3/uL (0.0-0.7); Absolute Lymphocyte Count 1.47 10^3/uL (1.2-3.4); Absolute Monocyte Count 1.23 10^3/uL (0.1-0.8); Basophils % 1.3; Eosinophils % 1.1; HCT 33.3 % (40.0-50.0); HGB 10.6 g/dL (13.5-17.5); Immature Grans % 0.4; Lymphocytes % 19.8; MCH 29.9 pg (27.0-33.0); MCHC 31.8 % (32.0-36.0); MCV 94 fL (80-95); MPV 9.8 fL (8.0-11.0); Monocytes % 16.6; Neutrophils % 60.8; Platelet Count 237 10^3/uL (130-400); RBC 3.54 10^6/uL (4.36-5.78); RDW 15.9 % (11.8-14.1); RDW-SD 54.9 fL; WBC 7.41 10^3/uL (4.4-10.8)
[2023-05-25 11:00] LABS: ALT 47 U/L (16-63); AST 80 U/L (15-37); Albumin 2.3 g/dL (3.4-5.0); Alkaline Phosphatase 663 U/L (46-116); Anion Gap 9.3 mmol/L (3-11); BUN 8 mg/dL (7-18); Bilirubin, Total 0.7 mg/dL (0.2-1.0); CO2 26.7 mmol/L (21.0-32.0); CREATININE 0.7 mg/dL (0.70-1.30); Calcium 9.2 mg/dL (8.5-10.1); Chloride 103 mmol/L (98-107); Estimated GFR 105.49 (mL/min/1.73m2); Glucose 110 mg/dL (74-106); Potassium 3.4 mmol/L (3.5-5.1); Sodium 139 mmol/L (136-145); Total Protein 6.7 g/dL (6.4-8.2)
[2023-05-27 13:42] VITALS: BP 122/78; PULSE 98
[2023-05-27] MEDS: Heparin 500 UNITS/5 ML SYRINGE IV (13:51)
[2023-05-27] MEDS: Normal Saline Flush 10 ML SYR IVP (13:52)
== END 2023-06-07 23:59 | disposition home or self-care (01) ==
LOC: INF 01:45
PROVIDERS: PCP Internal Medicine Hematology & Oncology; Visit Provider Internal Medicine Hematology & Oncology
DX: C18.9 Malignant neoplasm of colon, unspecified (principal); C78.7 Secondary malignant neoplasm of liver and intrahepatic bile duct; D70.1 Agranulocytosis secondary to cancer chemotherapy; Z45.2 Encounter for adjustment and management of vascular access device
CPT/HCPCS: 36591; 80053; 96372; 96523; 82378; 85025; J3590

== ENCOUNTER 2023-06-24 00:01 | Outpatient (RCR) | payer MEDICAID, SELFPAY ==
[2023-06-08 00:25] VITALS: BP 113/71; PULSE 76; RESP 16; TEMP 36.3
[2023-06-08] MEDS: Normal Saline Flush 10 ML SYR IVP (10:28)
[2023-06-08 11:24] LABS: Abs Immature Grans 0.02 10^3/uL (0.0-0.06); Absolute Basophil Count 0.08 10^3/uL (0.0-0.2); Absolute Eosinophil Count 0.14 10^3/uL (0.0-0.7); Absolute Lymphocyte Count 1.21 10^3/uL (1.2-3.4); Absolute Neutrophil Count 4.48 10^3/uL (1.2-6.7); Basophils % 1.1; Eosinophils % 1.9; HCT 31.4 % (40.0-50.0); HGB 10.4 g/dL (13.5-17.5); Immature Grans % 0.3; Lymphocytes % 16.3; MCH 31.6 pg (27.0-33.0); MCHC 33.1 % (32.0-36.0); MCV 95 fL (80-95); Monocytes % 20.2; Neutrophils % 60.2; Platelet Count 238 10^3/uL (130-400); RBC 3.29 10^6/uL (4.36-5.78); RDW 17.8 % (11.8-14.1); WBC 7.43 10^3/uL (4.4-10.8)
[2023-06-08 11:53] LABS: ALT 42 U/L (16-63); AST 83 U/L (15-37); Albumin 2.6 g/dL (3.4-5.0); Alkaline Phosphatase 563 U/L (46-116); Anion Gap 7.8 mmol/L (3-11); BUN 11 mg/dL (7-18); Bilirubin, Total 0.8 mg/dL (0.2-1.0); CO2 30.2 mmol/L (21.0-32.0); CREATININE 0.8 mg/dL (0.70-1.30); Calcium 9.6 mg/dL (8.5-10.1); Chloride 100 mmol/L (98-107); Estimated GFR 101.32 (mL/min/1.73m2); Glucose 143 mg/dL (74-106); Potassium 3.9 mmol/L (3.5-5.1); Sodium 138 mmol/L (136-145); Total Protein 6.9 g/dL (6.4-8.2)
[2023-06-08 23:18] LABS: CEA 299.3 ng/mL (See Note)
[2023-06-10] MEDS: Normal Saline Flush 10 ML SYR IVP (13:25)
[2023-06-10] MEDS: Heparin 500 UNITS/5 ML SYRINGE IV (13:26)
[2023-06-10 13:45] VITALS: BP 142/84; PULSE 116; RESP 16; TEMP 37.4; O2SAT 96
[2023-06-22] MEDS: Normal Saline Flush 10 ML SYR IVP (09:14)
[2023-06-22 09:29] LABS: Absolute Eosinophil Count 0.16 10^3/uL (0.0-0.7); Absolute Monocyte Count 2.39 10^3/uL (0.1-0.8); Eosinophils % 0.8; HCT 31.6 % (40.0-50.0); HGB 10.2 g/dL (13.5-17.5); MCH 31.6 pg (27.0-33.0); MCHC 32.3 % (32.0-36.0); MCV 98 fL (80-95); MPV 10.3 fL (8.0-11.0); Monocytes % 12.2; Nucleated RBC 0.2 % (0.0-0.3); Platelet Count 241 10^3/uL (130-400); RBC 3.23 10^6/uL (4.36-5.78); RDW 18.3 % (11.8-14.1); RDW-SD 65.1 fL; WBC 19.61 10^3/uL (4.4-10.8)
[2023-06-22 09:40] LABS: Absolute Lymphocyte Count 2.16 10^3/uL (1.2-3.4); Absolute Neutrophil Count 14.32 10^3/uL (1.2-6.7)
[2023-06-22 09:44] LABS: ALT 38 U/L (16-63); AST 76 U/L (15-37); Albumin 2.5 g/dL (3.4-5.0); Alkaline Phosphatase 636 U/L (46-116); Anion Gap 5.6 mmol/L (3-11); BUN 10 mg/dL (7-18); Bilirubin, Total 0.6 mg/dL (0.2-1.0); CO2 32.4 mmol/L (21.0-32.0); CREATININE 0.8 mg/dL (0.70-1.30); Calcium 9.6 mg/dL (8.5-10.1); Chloride 99 mmol/L (98-107); Estimated GFR 101.32 (mL/min/1.73m2); Glucose 123 mg/dL (74-106); Potassium 3.7 mmol/L (3.5-5.1); Sodium 137 mmol/L (136-145); Total Protein 6.6 g/dL (6.4-8.2)
[2023-06-22 09:48] LABS: Diff Comment Diff Reviewed; RBC Morphology Normal
[2023-06-24] MEDS: Normal Saline Flush 10 ML SYR IVP (11:45)
[2023-06-24] MEDS: Heparin 500 UNITS/5 ML SYRINGE IV (11:45)
[2023-06-24 11:46] VITALS: BP 130/80; PULSE 102; RESP 16; TEMP 36.3; O2SAT 97
[2023-06-25 10:58] LABS: CEA 216.8 ng/mL (See Note)
== END 2023-07-08 23:59 | disposition home or self-care (01) ==
LOC: INF 00:01
PROVIDERS: PCP Internal Medicine Hematology & Oncology; Visit Provider Internal Medicine Hematology & Oncology
DX: C18.9 Malignant neoplasm of colon, unspecified (principal); C78.7 Secondary malignant neoplasm of liver and intrahepatic bile duct; D70.1 Agranulocytosis secondary to cancer chemotherapy; Z45.2 Encounter for adjustment and management of vascular access device
CPT/HCPCS: 36591; 80053; 96523; 82378; 85025; J3590